=== PATIENT | female | born 1950 | race Caucasian/White ===

== ENCOUNTER → 2017-05-17 | Outpatient (CLI) | payer MEDICARE, OTHER ==
[2017-05-17 20:19] LABS: BASO % 0.5 % (0.0-1.0); EOS % 0.5 % (0.0-3.0); HEMATOCRIT 40.3 % (36.0-47.0); HEMOGLOBIN 13.7 g/dl (12.0-16.0); IMMATURE GRANULOCYTE % 0.2 % (0-3.0); MEAN CORPUSCULAR HEMOGLOBIN 31.5 pg (27.0-33.0); MEAN CORPUSCULAR VOLUME 92.6 fl (80.0-96.0); MONO # 0.4 10^3/uL (0.0-0.8); MONO % 6.4 % (0.0-5.0); NEUTROPHILS # 3.9 10^3/uL (1.8-7.7); NEUTROPHILS % 60.4 % (36.0-66.0); PLATELET COUNT, AUTOMATED 210 10^3/uL (150-450); RED BLOOD COUNT 4.35 10^6/uL (4.00-5.40); RED CELL DISTRIBUTION WIDTH 12.4 % (11.5-14.5); WHITE BLOOD COUNT 6.4 10^3/uL (4.0-10.0)
[2017-05-17 20:48] LABS: ALBUMIN 4.3 GM/DL (3.2-5.2); ALKALINE PHOSPHATASE 63 U/L (45-117); ALT/SGPT 18 U/L (12-78); ANION GAP 7 MEQ/L (8-16); AST/SGOT 18 U/L (7-37); BILIRUBIN,TOTAL 0.7 MG/DL (0.2-1.0); BLOOD UREA NITROGEN 14 MG/DL (7-18); CALCIUM LEVEL 9.2 MG/DL (8.8-10.2); CARBON DIOXIDE LEVEL 30 MEQ/L (21-32); CHLORIDE LEVEL 103 MEQ/L (98-107); CHOLESTEROL LEVEL 231 MG/DL (<200); CHOLESTEROL RISK RATIO 3.786 (<5); CREATININE FOR GFR 0.68 MG/DL (0.55-1.30); GLOMERULAR FILTRATION RATE > 60.0 (>45); GLUCOSE, FASTING 84 MG/DL (70-100); HDL CHOLESTEROL 61 MG/DL (>40); LDL CHOLESTEROL 144.4 MG/DL (<100); NON-HDL-C 170 MG/DL; POTASSIUM SERUM 3.9 MEQ/L (3.5-5.1); SODIUM LEVEL 140 MEQ/L (136-145); TOTAL PROTEIN 7.6 GM/DL (6.4-8.2); TRIGLYCERIDES LEVEL 128 MG/DL (<150)
== END ==
LOC: M LRY 16:07
DX: R03.0 Elevated blood-pressure reading, without diagnosis of hypertension (principal)
CPT/HCPCS: 84443

== ENCOUNTER → 2018-06-01 | Outpatient (CLI) | payer MEDICARE, OTHER ==
--- NOTE | 2018-06-02 06:33 | ECGEPIP ---
Stationary ECG Study [facility] Test Date: 2018-06-01 Pat Name: BOBY DA SILVA Department: Room: - Gender: F [employer] Leader: : 1950 Requested By: LIV Jose Order Number: [id number] Reading MD: Annie Ibarra Measurements Intervals [place] Rate: 73 P: 71 TN: 183 QRS: -42 QRSD: 89 T: 44 QT: 399 QTc: 443 Interpretive Statements SINUS RHYTHM WITH OCCASIONAL VENTRICULAR PREMATURE COMPLEXE Left anterior fascicular block NO PRIOR Electronically Signed On 06-02-2018 6:33:24 EDT by Annie Ibarra
== END ==
LOC: M EKG 16:36
PROVIDERS: ATTEND Surgery
DX: Z01.818 Encounter for other preprocedural examination (principal); I44.4 Left anterior fascicular block; I49.3 Ventricular premature depolarization

== ENCOUNTER → 2018-06-19 | Outpatient (CLI) | payer MEDICARE, OTHER ==
[~2018-06-19] MED LIST: CALC500C14 PO; CITA20TA6; OMEG1CAP16 PO; PROBCAP14 PO; VITA200010 PO
[2018-06-19 20:29] LABS: BLOOD UREA NITROGEN 14 MG/DL (7-18); CARBON DIOXIDE LEVEL 28 MEQ/L (21-32); CHLORIDE LEVEL 104 MEQ/L (98-107); CREATININE FOR GFR 0.71 MG/DL (0.55-1.30); GLOMERULAR FILTRATION RATE > 60.0 (>45); GLUCOSE, FASTING 92 MG/DL (70-100); POTASSIUM SERUM 3.7 MEQ/L (3.5-5.1); SODIUM LEVEL 140 MEQ/L (136-145)
[2018-06-19 20:40] LABS: TOTAL 25(OH) VITAMIN D 34.3 NG/ML (30.0-100.0)
== END ==
LOC: M LRY 16:51
PROVIDERS: ATTEND Internal Medicine Endocrinology, Diabetes & Metabolism
DX: E55.9 Vitamin D deficiency, unspecified (principal); M81.0 Age-related osteoporosis without current pathological fracture

== ENCOUNTER 2018-06-22 06:11 | Day surgery (SDC) | payer MEDICARE, OTHER ==
[~2018-06-22] VITALS: Ht 157.5 cm; Wt 57.2 kg
[~2018-06-22 06:11] MED LIST changes: +LIDOCAINE 1% MDV 20ML VIAL SQ PRN
[2018-06-22] MEDS ORDERED: LR 1,000 ML IV SCH (06:30)
[2018-06-22] MEDS ORDERED: PROPOFOL 200 MG/20 ML VIAL As Ordered ONE (07:15)
[2018-06-22] MEDS ORDERED: fentaNYL 100 MCG/2 ML INJECTION (J3010) As Ordered ONE (07:15)
[2018-06-22] MEDS ORDERED: LIDOCAINE 2% INJ 100 MG/5 ML SDV (FOR ANES.) As Ordered ONE (07:15)
[2018-06-22] MEDS ORDERED: MIDAZOLAM INJ 2 MG/2 ML VIAL (J2250) As Ordered ONE (07:16)
[2018-06-22] MEDS ORDERED: LIDOCAINE W/EPINEPHRINE 1% 20ML VIAL As Ordered ONE (07:33)
[2018-06-22] MEDS ORDERED: NORCO, ANEXSIA 5/325MG TABLET (HYDROcodone/ACETAMINOPHEN) PO PRN (08:45)
[2018-06-22 09:05] VITALS: BP 136/73
--- NOTE | 2018-06-25 20:19 | RO ---
DATE OF PROCEDURE: 06/22/2018 PREOPERATIVE DIAGNOSIS: Right flank lipoma. POSTOPERATIVE DIAGNOSIS: Right flank lipoma. PROCEDURE: Excision of large right flank lipoma measuring 9 x 10 cm. SURGEON: Dr. Ryan Reyes CONSTRUCTION TECHNOLOGY INSTRUCTOR: None. ANESTHESIA: MAC with 10 mL of 1% lidocaine with epinephrine (epi). ESTIMATED BLOOD LOSS: 3 mL. COMPLICATIONS: None. INDICATIONS FOR PROCEDURE: The patient is a 67-year-old female who presents with a large right flank lipoma. Recommendation was to proceed with excision in the operating room due to the size. Risks and benefits of the procedure are not limited to, but include, bleeding, infection, damage to surrounding structures, seroma formation, and need for further surgery. She understood and signed consent. DESCRIPTION OF PROCEDURE: The patient was brought back to operating room #3. She was placed in the left lateral decubitus position. Next, the right flank was sterilely prepped and draped with chlorhexidine. Following that, a time out was done to confirm proper patient and proper procedure. Next, 10 mL of local was injected in the skin and subcutaneous tissue overlying the lipoma. About a 7 cm incision was then created using a 15 blade scalpel. Dissection was then completed using a combination of blunt and sharp dissection with some cautery and some Metzenbaum scissors. Once the lipoma was removed, it was a multilobulated lipoma and measured 9 x 10 cm. Once the mass was completely removed, skin incision was closed with interrupted #3-0 nylon sutures. The area was then cleaned and dried, covered with 4 x 4 and tape thus ending procedure. The patient tolerated the procedure well and was sent back to advanced recovery in stable condition. GRETA
== END 2018-06-22 09:10 | disposition home or self-care (01) ==
LOC: M SDC 06:11
PROVIDERS: ATTEND Surgery
DX: D17.1 Benign lipomatous neoplasm of skin and subcutaneous tissue of trunk (principal); F41.9 Anxiety disorder, unspecified; Z87.891 Personal history of nicotine dependence; Z79.899 Other long term (current) drug therapy
CPT/HCPCS: 11406; 88304; J2250; J3010

== ENCOUNTER → 2018-12-03 | Outpatient (CLI) | payer MEDICARE, OTHER ==
[~2018-12-03] MED LIST changes: -LIDOCAINE 1% MDV 20ML VIAL SQ PRN
== END ==
LOC: M LRY 16:16
PROVIDERS: ATTEND Internal Medicine Endocrinology, Diabetes & Metabolism
DX: M81.0 Age-related osteoporosis without current pathological fracture (principal); Z53.9 Procedure and treatment not carried out, unspecified reason

== ENCOUNTER → 2020-06-29 | Outpatient (CLI) | payer MEDICARE, OTHER ==
--- NOTE | 2020-06-29 14:41 | DEXAMM ---
INDICATION: AGE RELATED OSTEOPOROSIS W/O FX/M81.0. COMPARISON: 06/28/2018, 09/04/2008. TECHNIQUE: Bone density was measured using dual-energy x-ray absorptiometry (DEXA). FINDINGS: AP SPINE L1-L4 BMD 0.861 g/cm2 Young Adult T-Score -2.7 Age Matched Z-Score -1.0. LT FEMUR, TOTAL BMD 0.645 g/cm2 Young Adult T-Score -2.9 Age Matched Z-Score -1.4. LT NECK BMD 0.630 g/cm2 Young Adult T-Score -2.9 Age Matched Z-Score -1.2. RT FEMUR, TOTAL BMD 0.672 g/cm2 Young Adult T-Score -2.7 Age Matched Z-Score -1.2. RT NECK BMD 0.682 g/cm2 Young Adult T-Score -2.6 Age Matched Z-Score -0.8. IMPRESSION: There is osteoporosis of the spine. There is osteoporosis of the left hip. There is osteoporosis of the right hip. The density of the spine has decreased 10.9% since the initial exam on 09/04/2008. The density of the spine increased 12.8% since most recent exam on 06/28/2018. The density of the left hip has decreased 14.0% since initial exam on 09/04/2008. The density of the left hip has decreased 1.7% since most recent exam on 06/28/2018. The density of the right hip has decreased 12.7% since the initial exam on 09/04/2008. The density of the right hip has decreased 2.0% since the most recent exam on 06/28/2018. FOLLOW-UP: Recommendation for the next bone density exam: 2 years. <Electronically signed by Ryan Mackenzie > 06/29/20 0912
== END ==
LOC: M WHC 12:30
PROVIDERS: ATTEND Internal Medicine Endocrinology, Diabetes & Metabolism
DX: M81.0 Age-related osteoporosis without current pathological fracture (principal)

== ENCOUNTER → 2021-05-06 | Outpatient (CLI) | payer MEDICARE, OTHER | LOC: M WHC 15:14 | PROVIDERS: ATTEND Family Medicine | DX: Z12.31 Encounter for screening mammogram for malignant neoplasm of breast (principal) ==

== ENCOUNTER → 2021-07-21 | Outpatient (REF) | payer MEDICARE, OTHER | LOC: M SFHCDERM 17:01 | PROVIDERS: ATTEND Dermatology | DX: T81.49XA Infection following a procedure, other surgical site, initial encounter (principal) ==

== ENCOUNTER → 2022-07-07 | Outpatient (CLI) | payer MEDICARE, OTHER | LOC: M WHC 09:33 | PROVIDERS: ATTEND Nurse Practitioner Family | DX: M81.0 Age-related osteoporosis without current pathological fracture (principal); M85.88 Other specified disorders of bone density and structure, other site; M85.851 Other specified disorders of bone density and structure, right thigh ==

== ENCOUNTER → 2022-08-17 | Outpatient (CLI) | payer MEDICARE, OTHER | LOC: M WHC 15:34 | PROVIDERS: ATTEND Family Medicine | DX: Z12.31 Encounter for screening mammogram for malignant neoplasm of breast (principal) ==

== ENCOUNTER 2022-10-05 07:46 | Day surgery (SDC) | payer MEDICARE, OTHER ==
[~2022-10-05] VITALS: Ht 157.5 cm; Wt 59.2 kg
[~2022-10-05 07:46] MED LIST changes: +BSS IRRIG/VANCO(10MG)/TOBRA(5MG)/EPINEPH(1:1000-0.5CC)500ML BAG-ORONLY IR ONE; +CALCIUM GUMMY PO; +CEFUROXIME 1MG/0.1ML INTRACAMERAL INJ As Ordered ONE; -CITA20TA6; +CITA20TA6 PO; +CYCLOPENTOLATE 1% OPHTH SOLN 2ML BTL OS SCH; +D-20TAB PO; +HAIR1CHW2 PO; +LIDOCAINE 1% SDV 5ML VIAL As Ordered ONE; +LIDOCAINE 3.5 % 1ML OPHTH TOPICAL GEL OU ONE; +NOXI1TAB PO; +OFLOXACIN 0.3 % (OCUFLOX) OPTH SOL 5ML OS ONE; +OMEG12004 PO; +PHENYLEPHRINE 10% OPHTH SOL 5ML OS PRN; +PHENYLEPHRINE 2.5% OPHTH SOL 2ML OS SCH; +TROPICAMIDE 1% OPHTH SOLN 15ML OS SCH
[2022-10-05] MEDS ORDERED: MIDAZOLAM INJ 2MG/2ML VIAL As Ordered ONE (09:27)
[2022-10-05] MEDS ORDERED: fentaNYL 100 MCG/2 ML INJECTION As Ordered ONE (09:27)
[2022-10-05 10:51] VITALS: BP 177/90; TEMP 98; O2SAT 95
== END 2022-10-05 11:47 | disposition home or self-care (01) ==
LOC: M SDC 07:46
PROVIDERS: ATTEND Ophthalmology
DX: H25.12 Age-related nuclear cataract, left eye (principal); H57.03 Miosis; F41.9 Anxiety disorder, unspecified; R03.0 Elevated blood-pressure reading, without diagnosis of hypertension; M81.0 Age-related osteoporosis without current pathological fracture; R06.83 Snoring; Z79.899 Other long term (current) drug therapy
CPT/HCPCS: 66982; 92015; J0697; J2250; J3010; V2788

== ENCOUNTER → 2023-09-13 | Outpatient (CLI) | payer MEDICARE, OTHER ==
[~2023-09-13] MED LIST changes: -BSS IRRIG/VANCO(10MG)/TOBRA(5MG)/EPINEPH(1:1000-0.5CC)500ML BAG-ORONLY IR ONE; -CEFUROXIME 1MG/0.1ML INTRACAMERAL INJ As Ordered ONE; -CYCLOPENTOLATE 1% OPHTH SOLN 2ML BTL OS SCH; -LIDOCAINE 1% SDV 5ML VIAL As Ordered ONE; -LIDOCAINE 3.5 % 1ML OPHTH TOPICAL GEL OU ONE; -OFLOXACIN 0.3 % (OCUFLOX) OPTH SOL 5ML OS ONE; -PHENYLEPHRINE 10% OPHTH SOL 5ML OS PRN; -PHENYLEPHRINE 2.5% OPHTH SOL 2ML OS SCH; -TROPICAMIDE 1% OPHTH SOLN 15ML OS SCH
== END ==
LOC: M WHC 14:07
PROVIDERS: ATTEND Family Medicine
DX: Z12.31 Encounter for screening mammogram for malignant neoplasm of breast (principal)

== ENCOUNTER → 2024-10-16 | Outpatient (CLI) | payer MEDICARE, OTHER | LOC: M WHC 15:49 | PROVIDERS: ATTEND Family Medicine | DX: Z12.31 Encounter for screening mammogram for malignant neoplasm of breast (principal) ==